=== PATIENT | female | born 1995 | race Caucasian/White ===

== ENCOUNTER 2021-11-14 16:22 | Inpatient (IN) | payer MEDICAID ==
[~2021-11-14] VITALS: Ht 160 cm; Wt 86.2 kg
[2021-11-14] MEDS ORDERED: FERR-71 MT (17:00)
[2021-11-14] MEDS ORDERED: PREN-55 MT (17:00)
[2021-11-14] MEDS ORDERED: CARBOPROST TROMETHAMINE 250 MCG/ML AMPUL IM PRN (18:45)
[2021-11-14] MEDS ORDERED: NALOXONE HCL 0.4 MG/ML 1ML VIAL IM PRN (18:45)
[2021-11-14] MEDS ORDERED: LACTATED RINGERS 1,000 ML IV SCH (18:45)
[2021-11-14] MEDS ORDERED: OXYTOCIN 30 UNITS/500ML NS PMX 500 ML IV SCH (18:45)
[2021-11-14] MEDS ORDERED: LIDOCAINE HCL 1% 30ML VIAL (10MG/ML) INFIL SCH (18:45)
[2021-11-14] MEDS ORDERED: METHYLERGONOVINE MALEATE 0.2 MG/ML IM PRN (18:45)
[2021-11-14 20:25] LABS: CLARITY URINE CLEAR (CLEAR); COLOR URINE YELLOW (YELLOW); KETONES URINE TRACE (NEGATIVE); LEUKOCYTE ESTERASE URINE NEGATIVE (NEGATIVE); NITRITE URINE NEGATIVE (NEGATIVE); OCCULT BLOOD URINE 1+ (NEGATIVE); PH URINE 6.5 (4.5-8.0); PROTEIN URINE NEGATIVE (NEGATIVE); SPECIFIC GRAVITY URINE 1.006 (1.005-1.030); UROBILINOGEN URINE 0.2 E.U./dL (0.2-1.0)
[2021-11-14 20:26] LABS: BASOPHILS % 0.2 % (0.0-2.0); EOSINOPHILS % 0.1 % (0.0-5.0); HEMATOCRIT. 34.4 % (36.0-48.0); HEMOGLOBIN. 11.6 g/dL (12.0-16.0); LYMPHOCYTES % 21.2 % (20.0-50.0); MEAN CORPUSCULAR HEMOGLOBIN 30.8 pg (28.0-32.0); MEAN CORPUSCULAR VOLUME 91.7 fL (81.0-99.0); MONOCYTES % 5.9 % (2.0-8.0); NEUTROPHILS % 72.6 % (40.0-76.0); PLATELET 202 x1000/uL (130-400); RED BLOOD CELL COUNT 3.75 mill/uL (4.2-5.4); RED CELL DISTRIBUTION WIDTH 13.3 % (11.6-14.6)
[2021-11-14 20:34] LABS: INR 0.9; PARTIAL THROMBOPLASTIN TIME 30.5 sec (23.4-31.0); PROTHROMBIN TIME 9.9 sec (9.6-11.0)
[2021-11-14 20:37] LABS: *AMPHETAMINES SCREEN URINE NEGATIVE (NEGATIVE); *BARBITURATES SCREEN URINE NEGATIVE (NEGATIVE); *BENZODIAZEPINES SCREEN URINE NEGATIVE (NEGATIVE); *COCAINE SCREEN URINE NEGATIVE (NEGATIVE); CANNABINOID URINE SCREEN NEGATIVE (NEGATIVE); METHADONE URINE SCREEN NEGATIVE (NEGATIVE); OPIATES URINE SCREEN NEGATIVE (NEGATIVE); PHENCYCLIDINE URINE SCREEN NEGATIVE (NEGATIVE)
[2021-11-14 21:00] LABS: HEPATITIS B SURFACE ANTIGEN NEGATIVE
[2021-11-14] MEDS: BUTORPHANOL TARTRATE 2 MG/ML VIAL IM PRN ×2 (22:20→22:48)
[2021-11-15] MEDS ORDERED: BUTORPHANOL TARTRATE 2 MG/ML VIAL IM PRN ×2 (00:30)
[2021-11-15] MEDS ORDERED: DIPHENHYDRAMINE 25MG CAPSULE PO PRN (00:45)
[2021-11-15] MEDS ORDERED: IBUPROFEN 400MG TABLET PO PRN (00:45)
[2021-11-15] MEDS ORDERED: RHO(D) IMMUNE GLOBULIN 300 MCG/SYR IM PRN (00:45)
[2021-11-15] MEDS ORDERED: IBUPROFEN 800MG TABLET PO PRN (00:45)
[2021-11-15 02:30] VITALS: BP 103/65
[2021-11-15 03:30] VITALS: BP 100/63
[2021-11-15 06:53] LABS: BASOPHILS % 0.1 % (0.0-2.0); HEMATOCRIT. 33.9 % (36.0-48.0); HEMOGLOBIN. 11.4 g/dL (12.0-16.0); LYMPHOCYTES % 7.6 % (20.0-50.0); MEAN CORPUSCULAR HEMOGLOBIN 31.2 pg (28.0-32.0); MEAN CORPUSCULAR VOLUME 92.6 fL (81.0-99.0); MEAN PLATELET VOLUME 9.4 fl (7.4-10.4); MONOCYTES % 5.6 % (2.0-8.0); NEUTROPHILS % 86.7 % (40.0-76.0); PLATELET 213 x1000/uL (130-400); RED BLOOD CELL COUNT 3.66 mill/uL (4.2-5.4); RED CELL DISTRIBUTION WIDTH 13.5 % (11.6-14.6)
[2021-11-15 12:30] VITALS: BP 107/72
[2021-11-15] MEDS ORDERED: LANOLIN OINT 7GM TUBE TOP PRN (14:45)
[2021-11-15] MEDS: PRENATAL VIT/FE FUMARATE/FA TABLET PO SCH (18:15)
[2021-11-15 20:00] VITALS: BP 122/84
[2021-11-16 04:00] VITALS: BP 98/62
[2021-11-16 07:04] LABS: BASOPHILS % 0.3 % (0.0-2.0); EOSINOPHILS % 0.6 % (0.0-5.0); HEMATOCRIT. 33.4 % (36.0-48.0); HEMOGLOBIN. 11.4 g/dL (12.0-16.0); MEAN CORPUSCULAR HEMOGLOBIN 31.9 pg (28.0-32.0); MEAN CORPUSCULAR VOLUME 93.2 fL (81.0-99.0); MEAN PLATELET VOLUME 9.2 fl (7.4-10.4); MONOCYTES % 5.9 % (2.0-8.0); NEUTROPHILS % 65.2 % (40.0-76.0); PLATELET 203 x1000/uL (130-400); RED BLOOD CELL COUNT 3.58 mill/uL (4.2-5.4); RED CELL DISTRIBUTION WIDTH 13.6 % (11.6-14.6)
[2021-11-16 08:15] VITALS: BP 115/86
[2021-11-16] MEDS: PRENATAL VIT/FE FUMARATE/FA TABLET PO SCH (08:28)
[2021-11-16] MEDS: FERROUS SULFATE 325MG TABLET PO SCH ×2 (08:28→16:35)
[2021-11-16 16:40] VITALS: BP 112/71
[2021-11-16 20:00] VITALS: BP 116/70
[2021-11-17 04:30] VITALS: BP 117/73
[2021-11-17 08:00] VITALS: BP 111/73
[2021-11-17] MEDS ORDERED: IBUP-2030 PO (08:05)
[2021-11-17] MEDS: FERROUS SULFATE 325MG TABLET PO SCH (09:04)
[2021-11-17] MEDS: PRENATAL VIT/FE FUMARATE/FA TABLET PO SCH (09:04)
== END 2021-11-17 12:55 | disposition home or self-care (01) | DRG 560 ==
LOC: 8 EST LDRP 16:22 → OBSVTOIN 16:22 → 8EST 11-15 02:15
PROVIDERS: ADMIT Obstetrics & Gynecology; ATTEND Obstetrics & Gynecology
PROC: 10E0XZZ Delivery of Products of Conception, External Approach (ICD-10-PCS; principal; 2021-11-16)
DX: O77.0 Labor and delivery complicated by meconium in amniotic fluid (principal); Z37.0 Single live birth; Z20.822 Contact with and (suspected) exposure to COVID-19; Z3A.39 39 weeks gestation of pregnancy
CPT/HCPCS: 36415; 80305; 81003; 85025; 86592; 86703; 86762; 86850; 86900; 87340; 87426; 99281; G0378; J0595; J2590